=== PATIENT | female | born 1975 | race Hispanic/Latino ===

== ENCOUNTER 2020-07-19 13:00 | Emergency (ER) | payer SELFPAY ==
[~2020-07-19] VITALS: Ht 154.9 cm; Wt 51.5 kg
[2020-07-19] MEDS ORDERED: DIPHENHYDRAMINE HCL INJ 50 MG/ML VIAL IV ONE (13:45)
[2020-07-19] MEDS ORDERED: SODIUM CHLORIDE 0.9% 1000ML 1,000 ML IV SCH (13:45)
[2020-07-19] MEDS ORDERED: METOCLOPRAMIDE HCL 10 MG/2ML VIAL IV ONE (13:45)
[2020-07-19] MEDS ORDERED: DEXAMETHASONE SOD PHOS 10 MG/1 ML VIAL IV ONE (13:45)
[2020-07-19] MEDS ORDERED: SODIUM CHLORIDE 0.9% 1000ML 1,000 ML ONE (14:10)
[2020-07-19] MEDS ORDERED: DEXAMETHASONE SOD PHOS INJ 4 MG/ML VIAL ONE (14:10)
[2020-07-19] MEDS ORDERED: METOCLOPRAMIDE HCL 10 MG/2ML VIAL ONE (14:10)
[2020-07-19] MEDS ORDERED: DIPHENHYDRAMINE HCL INJ 50 MG/ML VIAL ONE (14:10)
[2020-07-19] MEDS ORDERED: SODIUM CHLORIDE 0.9% 50ML 50 ML ONE (14:10)
--- NOTE | 2020-07-19 14:18 | Diagnostic Imaging Report ---
Exam: Head CT without contrast History: Occipital headache. Comparison studies: None Technique: Axial images were obtained from the skull base to the vertex. Coronal and sagittal images reconstructed from the axial data. Dose modulation, iterative reconstruction, and/or weight based adjustment of the mA/kV was utilized to reduce the radiation dose to as low as reasonably achievable. Radiation dose: Total DLP: 848 mGy*cm. Estimated effective dose: DLP x 0.015 Intravenous contrast: None Findings: Scalp: No abnormalities. Bones: No fractures or destructive lytic or blastic lesions. 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 Brain sulci: Appropriate for age. Ventricles: Normal in size and configuration. No hydrocephalus. Extra-axial spaces: No masses, no fluid collection. Parenchyma: No abnormal densities. No masses, hemorrhage, acute or chronic vascular insults. Sellar/suprasellar region: No abnormalities. Craniocervical junction: Patent foramen magnum. No Chiari one malformation. Included paranasal sinuses: Clear. IMPRESSION: No acute abnormalities. Signed by: Dr. Jeovany Torres M.D. on 07/19/2020 2:15 PM
--- NOTE | 2020-07-19 14:25 | Emergency Department Note ---
History of Present Illnes History of Present Illness Chief Complaint: Headache History of Present Illness This is a 45 year old female, with no significant past medical history who presents with a ten-day history of intermittent occipital headache, neck pain, light sensitivity, nausea and vomiting. 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 Patient denies any history of migraine headaches. Patient has been taking Excedrin, with temporary relief of her headache. She has only b een taking 1 tablet per dose. Patient also describes a throbbing pain in the occipital area as well as pain and tightness down her neck. She also describes tightness around her head. She denies any cough, nasal congestion, nasal drainage, fever, or upper respiratory symptoms. Patient states that over the past 10 days has had 5 or 6 episodes of vomiting. She's had some mild light se nsitivity, but denies any double vision blurred vision scotoma, or other visual changes. Patient works at a [employer], and today was apparently the first day that the symptoms for shortness work. She denies seeking any previous treatment for this headache episode. Patient denies any current life stressors or being worried or stressed about anything in particular. Historian: Patient Arrival Mode: Car Additional Treatment DEVELOPMENT AND HOUSING DIRECTOR: excedrin 250mg 0900 History limited by: language barrier Tablet Repair Required: Yes ([place] Stephanie Salmon [id number]; Elena # [id number];) Onset (how long ago): day(s) (10) Location: occipital, neck Quality: throbbing, aching Radiation: Reports neck Severity: severe (07/24) Onset quality: gradual Duration (how long): day(s) (10) Timing of current episode: intermittent Progression: waxing and waning Chronicity: new Context: Denies recent illness, Denies recent travel, Denies trauma/injury, Denies new medications Relieving factors: medication (Excedrin offers temporary relief) Exacerbating factors: none Associated symptoms: Reports headaches, Reports nausea/vomiting; Denies confusion, Denies cough, Denies fever/chills, Denies malaise, Denies rash, Denies shortness of breath, Denies weakness Treatments prior to arrival: NSAID, aspirin Past Medical/Family History Physician Review I have reviewed the patient's past medical and family history. Any updates have been documented here. Past Medical History Recent Fever: No Clinical Suspicion of Infectio: No New/Unexplained Change in Ment: No Past Medical History: None Past Surgical History: Lumpectomy Social History Smoking Cessation: Current every day smoker Counseling Performed: Yes Alcohol Use: None Any Illegal Drug Use: No TB Exposure/Symptoms: No Physically hurt or threatened: No Family History Family history of heart diseas: No Other Any Pre-Existing Lines (PICC,: No Is patient up to date on immun: Yes Review of Systems Review of Systems Constitutional: Denies chills, Denies fever EENTM: Denies eye pain, Denies blurred vision, Denies double vision Cardiovascular: Denies chest pain, Denies palpitations Respiratory: Denies cough, Denies dyspnea Gastrointestinal: Reports nausea, Reports vomiting; Denies abdominal pain, Denies diarrhea Genitourinary: Denies dysuria, Denies frequency Musculoskeletal: Reports neck pain (without stiffness); Denies muscle stiffness Integumentary: Reports no symptoms; Denies rash Neurological: Reports headache; Denies numbness, Denies paresthesia, Denies tingling, Denies weakness Psychological: Denies anxiety, Denies depressed Hematological/Lymphatic: Reports no symptoms Review of other systems: All other systems negative Physical Exam Related Data Allergies: Coded Allergies: No Known Allergies (Unverified , 07/19/20) Triage Vital Signs Vital Signs Date Time Temp Pulse Resp B/P (MAP) Pulse Ox O2 Delivery O2 Flow Rate FiO2 07/19/20 13:05 99.1 71 14 116/72 100 Room Air Vital signs reviewed: Yes Physical Exam CONSTITUTIONAL Constitutional: Present well-developed, Present well-nourished; Absent distressed, Absent ill appearing HENT HENT: Present normocephalic, Present atraumatic, Present oropharynx clear/moist, Present nose normal HENT L/R: Present left TM normal, Present right TM normal, Present left ext ear normal, Present right ext ear normal EYES Eyes: Reports PERRL, Reports conjunctivae normal NECK Neck: Present ROM normal, Present supple, Present other (no stifness, neg Kernig's, neg Brudinzski's sign;); Absent cervical adenopathy PULMONARY Pulmonary: Present effort normal, Present breath sounds normal CARDIOVASCULAR Cardiovascular: Present regular rhythm, Present heart sounds normal, Present capillary refill normal, Present normal rate GASTROINTESTINAL Abdominal: Present soft, Present nontender, Present bowel sounds normal; Absent tender GENITOURINARY Genitourinary: Present exam deferred SKIN Skin: Present warm, Present dry; Absent rash MUSCULOSKELETAL Musculoskeletal: Present ROM normal NEUROLOGICAL Neurological: Present alert, Present oriented x 3, Present no gross motor or sensory deficits; Absent sensory deficit PSYCHOLOGICAL Psychological: Present mood/affect normal, Present judgement normal Results Laboratory Laboratory UA - blood, small, otherwise negative; UPT - negative; CMP - normal; CBC - nl WBC, no anemia; Lab results reviewed: Yes Imaging Imaging results reviewed: Yes Impressions [facility] [address] [place] [address] Patient Name: HOANG ROBERSON MR #: [id number] : 1975 Age/Sex: 45/F Req #: [id number] Adm Physician: Ordered by: RANDEE LOPEZ MD Report #: [id number] Location: [facility] Room/Bed: Procedure: [id number] [facility] Exam Date: 07/19/20 Exam Time: 1358 REPORT STATUS: Signed Exam: Head CT without contrast History: Occipital headache. Comparison studies: None Technique: Axial images were obtained from the skull base to the vertex. Coronal and sagittal images reconstructed from the axial data. Dose modulation, iterative reconstruction, and/or weight based adjustment of the mA/kV was utilized to reduce the radiation dose to as low as reasonably achievable. Radiation dose: Total DLP: 848 mGy*cm. Estimated effective dose: DLP x 0.015 Intravenous contrast: None Findings: Scalp: No abnormalities. Bones: No fractures or destructive lytic or blastic lesions. 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 Brain sulci: Appropriate for age. Ventricles: Normal in size and configuration. No hydrocephalus. Extra-axial spaces: No masses, no fluid collection. Parenchyma: No abnormal densities. No masses, hemorrhage, acute or chronic vascular insults. Sellar/suprasellar region: No abnormalities. Craniocervical junction: Patent foramen magnum. No Chiari one malformation. Included paranasal sinuses: Clear. IMPRESSION: No acute abnormalities. Signed by: Dr. Santi Torres M.D. on 07/19/2020 2:15 PM Dictated By: SANTI TORRES MD 14 Transcribed By: J LUIS on 07/19/201414 COPY TO: RANDEE LOPEZ MD~ Assessment & Plan Medical Decision Making MDM - Take medication, as directed, as needed. - Stay well hydrated. Recommend that you drink at least 8 bottles of water per day, or @ 1 gallon. - Follow-up with a Primary Care Physician, if your symptoms worsen or persist. - Quit Smoking Assessment & Plan Final Impression: (1) Tension type headache (2) Nausea & vomiting Depart Disposition: HOME, SELF-CARE Last Vital Signs Date Time Temp Pulse Resp B/P (MAP) Pulse Ox O2 Delivery O2 Flow Rate FiO2 07/19/20 13:05 99.1 71 14 116/72 100 Room Air Home Meds Active Scripts Ondansetron (ONDANSETRON ODT) 8 Mg Tab.rapdis, 4 MG PO Q6H PRN for NAUSEA, #20 TAB 0 Refills Prov:RANDEE LOPEZ MD 07/19/20 Butalb/Acetaminophen/Caffeine (Fioricet 50-300-40 mg Capsule) 1 Each Capsule, 1- 2 TAB PO Q6H PRN for headache, #20 TAB-CAP 0 Refills Do NOT take and drive or operate machinery. Prov:RANDEE LOPEZ MD 07/19/20 Medications in the ED Metoclopramide HCl 10 mg ONCE ONCE IV Last administered on 07/19/20at 14:05; Admin Dose 10 MG; Start 07/19/20 at 13:45; Stop 07/19/20 at 13:46; Status DC Diphenhydramine HCl 25 mg NOW ONCE IV Last administered on 07/19/20at 14:05; Admin Dose 25 MG; Start 07/19/20 at 13:45; Stop 07/19/20 at 13:46; Status DC Dexamethasone Sodium Phosphate 10 mg ONCE ONCE IV Last administered on 07/19/20at 14:05; Admin Dose 10 MG; Start 07/19/20 at 13:45; Stop 07/19/20 at 13:46; Status DC Sodium Chloride 1,000 ml @ 0 mls/hr Q0M IV Last administered on 07/19/20at 14:05; Admin Dose 1,000 MLS/HR; Start 07/19/20 at 13:45; Stop 07/19/20 at 18:00 Dexamethasone Sodium Phosphate 12 mg STK-MED ONCE .ROUTE ; Start 07/19/20 at 14:10; Stop 07/19/20 at 14:06; Status DC Metoclopramide HCl 10 mg STK-MED ONCE .ROUTE ; Start 07/19/20 at 14:10; Stop at 14:06; Status DC Diphenhydramine HCl 50 mg STK-MED ONCE .ROUTE ; Start 07/19/20 at 14:10; Stop 07/19/20 at 14:06; Status DC Sodium Chloride 1,000 ml @ ud STK-MED ONCE .ROUTE ; Start 07/19/20 at 14:10; Stop 07/19/20 at 14:06; Status DC Sodium Chloride 50 ml @ ud STK-MED ONCE .ROUTE ; Start 07/19/20 at 14:10; Stop 07/19/20 at 14:06; Status DC RANDEE LOPEZ MD Jul 19, 2020 14:25
--- OUTSIDE RECORDS SUMMARY | 2020-07-19 14:30 | XMS REPORT | Clinical Summary ---
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 (gastroesophageal reflux disease) Active Cetirizine-Pseudoephedrin Take 1 tablet 60 tablet 0 e (ALLERGY-D, by mouth 2 4 CETIRIZINE,) 5-120 mg 12 times daily. hr tabletIndications: Seasonal allergies Active Condoms - Male by 12 Each 0 MiscIndications: Misc.(Non-Yonis 8 Surveillance of g; Combo contraceptive pill Route) route as needed. Active Problems No known active problems Immunizations Name Administration Dates Next Due Influenza Vaccine 07/27/2014 Influenza Vaccine, 12/18/2017 (Deferred: Vacci ne Unavailable) Seasonal, Injectable Tdap (Tetanus Toxoid, 12/18/2017 (Deferred: Patie nt already had this Reduced Diphtheria Toxoid immunization) And Acellular Pertussis, Absorbed) Tdap Tetanus, diphtheria, 12/19/2011 acellular pertussis Vaccine Family History Medical History Relation Name Comments Diabetes Maternal Grandfather Diabetes Maternal Grandmother Relation Name Status Comments Brother Alive Brother Alive Brother Alive Daughter Alive Father Alive Maternal Grandfather Maternal Grandmother Mother Alive Paternal Grandfather Paternal Grandmother Sister Alive Sister Alive Sister Alive Sister Alive Sister Alive Son Alive Son Alive Son Alive Social History Date Tobacco Use Types Packs/Day Years Used Former Smoker Smokeless Tobacco: Never Used Tobacco Cessation: Counseling Given: Yes Comments: States stopped about 7 months ago Drinks/Week oz/Week Comments Alcohol Use No Food Insecurity Answer Date Recorded Within the past 12 months, you worried that your Never faustino e 06/20/2018 food would run out before you got money to buy more. Within the past 12 months, the food you bought Never true 06/20/2018 just didn't last and you didn't have mo errol to get more. Sex Assigned at Date Recorded Not on file Industry Job Start Date Occupation Not on file Not on file Not on file Travel End Travel History Travel Start No recent travel history available. Last Filed Vital Signs Not on file Plan of Treatment Health Maintenance Due Date Last Done Comments Breast Cancer Scrn 01/03/2019 01/03/2018 (Yearly) IMM Influenza Seasonal 07/15/2020 07/27/2014Jul to December (>/= 19 yrs) Cervical Cancer Scrn (3 06/20/2021 06/20/2018, Yrs) 01/01/2015 Results Not on fileafter 07/19/2019 Insurance Type Payer Benefit Subscriber ID Effective Phone Address Plan / Dates Group [place] xxxxxxxxx 2020- [id number] [place] [phone] Natalia Calderon Personal/F Self [address] [place] (Home) [place], [place] [address] Natalia Calderon Farhan Self [address] [place] ([place]) [place] [address]
--- OUTSIDE RECORDS SUMMARY | 2020-07-19 14:30 | XMS REPORT | Continuity of Care Document ---
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 Allergies, Adverse Reactions, Alerts This patient has no known allergies or adverse reactions. Family History Family Member Diagnosis Comments Start Date Stop Date Source Maternal grandfather Diabetes [facility] Maternal grandmother Diabetes [facility] Social History Social Habit Start Date Stop Date Quantity Comments Source Sex Assigned At [facility] Alcohol intake 2019-03-19 00:00:00 2019-03-19 00:00:00 Current non-drinker of alcohol (finding) [facility] History SDOH Food Worry 2018-06-20 00:00:00 2018-06-20 00:00:[address] [facility] Food Scarcity 2018-06-20 00:00:00 2018-06-20 00:00:00 1 [facility] Tobacco Comment 2018-06-20 00:00:00 2018-06-20 00:00:00 States s topped about 7 months ago [facility] Smoking Status Start Date Stop Date Source Former smoker 2019-03-19 00:00:00 2019-03-19 00:00:00 [facility]alt Medications Ordered Medication Name Filled Medication Name Start Date Stop Da te Current Medication? Ordering Clinician Indication Dosage Frequency Signature (SIG) Comments Components Source Condoms - Male Misc 2018-06-20 00:00:00 Yes Surveillance of contraceptive pill by [facility].(Non-Drug; Combo Route) route as needed . [facility] omeprazole (PRILOSEC) 20 mg delayed release capsule 2013-10 0- 00:00:00 Yes GERD (gastroesophageal reflux disease) 20mg QD Ta ke 1 capsule by mouth daily. [facility] Cetirizine-Pseudoephedrine (ALLERGY-D, CETIRIZINE,) 5-120 mg 12 hr tablet 2014-08-10 00:00:00 Yes Seasonal allergies 1{tbl} Q .5D Take 1 tablet by mouth 2 times daily. [facility] Immunizations Ordered Immunization Name Filled Immunization Name Date Status Comments Source Influenza Vaccine 2014-07-27 00:00:00 Completed [facility] Tdap Tetanus, diphtheria, acellular pertussis Vaccine 2011-12-19 00:00:00 Completed [facility] Procedures This patient has no known procedures. Plan of Care Planned Activity Planned Date Details Comments Source Future Scheduled Test 2021-06-20 00:00:00 Screening for alejandra gnant neoplasm of cervix (procedure) [code = [id number]] [facility] Scheduled Test 2020-07-15 00:00:00 IMM Influenza Seas onal Jul to December (>/= 19 yrs) [code = IMM Influenza Seasonal Jul to December (>/= 19 yrs)] [facility] Scheduled Test 2019-01-03 00:00:00 Breast Cancer Scrn (Yearly) [code = Breast Cancer Scrn (Yearly)] [facility] Encounters Start Date/Time End Date/Time Encounter Type Admission Type Attendi [facility] Care Department Encounter ID Source 2017-07-31 13:46:51 2017-07-31 13:46:51 Outpatient [facility] [id number] [facility] 2017-06-26 15:33:47 2017-06-26 15:33:47 Outpatient [facility] [id number] [facility] 2017-06-26 14:09:44 2017-06-26 14:09:44 Outpatient [facility] [id number] [facility] Results Test Description Test Time Test Comments Results Result Comments Source CT BRAIN WO-HOPD 2020-07-19 14:12:00 [place] [address] Patient Name: HOANG ROBERSON MR #: [id number] : 1975 Age/Sex: 45/F Req #: [id number] Adm Physician: Ordered by: RANDEE LOPEZ MD Report #: [id number] Location: [facility] Room/Bed: Procedure: [id number] HOPD/CT BRAIN WO-HOPD Exam Date: 07/19/20 Exam Time: 1358 REPORT STATUS: Signed Exam: Head CT without contrast History: Occipital headache. Comparison studies: None Technique: Axial images were obtained from the skull base to the vertex. Coronal and sagittal images reconstructed from the axial data. Dose modulation, iterative reconstruction, and/or weight based adjustment of the mA/kV was utilized to reduce the radiation dose to as low as reasonably achievable. Radiation dose: Total DLP: 848 mGy*cm. Estimated effective dose: DLP x 0.015 Intravenous contrast: None Findings: Scalp: No abnormalities. Bones: No fractures or destructive lytic or blastic lesions. 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 Brain sulci: Appropriate for age. Ventricles: Normal in size and configuration. No hydrocephalus. Extra-axial spaces: No masses, no fluid collection. Parenchyma: No abnormal densities. No masses, hemorrhage, acute or chronic vascular insults. Sellar/suprasellar region: No abnormalities. Craniocervical junction: Patent foramen magnum. No Chiari one malformation. Included paranasal sinuses: Clear. IMPRESSION: No acute abnormalities. Signed by: Dr. Santi Torres M.D. on 07/19/2020 2:15 PM Dictated By: SANTI TORRES MD 14 Transcribed By: J LUIS on 07/19/201414 COPY TO: RANDEE LOPEZ MD
[2020-07-19] MEDS ORDERED: FIORICET 50-301 EACH PO (15:47)
[2020-07-19] MEDS ORDERED: ONDANSETRON ODT8 MG PO (15:48)
[2020-07-19 16:08] VITALS: BP 98/61
== END 2020-07-19 16:07 | disposition home or self-care (01) ==
LOC: FSED 13:21
DX: G44.209 Tension-type headache, unspecified, not intractable (principal); R11.2 Nausea with vomiting, unspecified; F17.210 Nicotine dependence, cigarettes, uncomplicated
CPT/HCPCS: 70450; 80053; 81003; 81025; 85025; 96374; 96375; 99284; J1100; J1200; J2765; J7030